=== PATIENT | male | born 1980 | race African-American/Black ===

== ENCOUNTER 2024-01-03 08:24 | Emergency (ER) | payer MEDICAID, OTHER ==
[~2024-01-03] VITALS: Ht 180.3 cm; Wt 116.0 kg
[2024-01-03 08:27] VITALS: TEMP 98.2; O2SAT 99
[2024-01-03] MEDS ORDERED: IBUP-2029 MT (10:45)
[2024-01-03] MEDS ORDERED: IBUPROFEN 800MG TABLET PO ONE (11:00)
[2024-01-03 11:07] VITALS: BP 142/90; PULSE 106; RESP 12
[2024-01-03] MEDS: IBUPROFEN 400MG TABLET PO NR (11:07)
== END 2024-01-03 11:50 | disposition home or self-care (01) ==
LOC: ER 08:24
DX: S86.011A Strain of right Achilles tendon, initial encounter (principal); W21.89XA Striking against or struck by other sports equipment, initial encounter; Y93.89 Activity, other specified; Y92.89 Other specified places as the place of occurrence of the external cause; Y99.8 Other external cause status
CPT/HCPCS: 29515; 76881; 99284